=== PATIENT | female | born 1965 ===

== ENCOUNTER → 2019-08-26 | Outpatient (CLI) | payer OTHER | LOC: LAB 19:18 → LAB SHORT 19:18 | DX: D18.01 Hemangioma of skin and subcutaneous tissue (principal); D69.2 Other nonthrombocytopenic purpura; D48.5 Neoplasm of uncertain behavior of skin; B37.2 Candidiasis of skin and nail; L08.9 Local infection of the skin and subcutaneous tissue, unspecified; L81.8 Other specified disorders of pigmentation; L81.4 Other melanin hyperpigmentation | CPT/HCPCS: 87070; 87205 ==